=== PATIENT | female | born 1930 | race Caucasian/White ===

== ENCOUNTER → 2017-08-30 | Outpatient (CLI) | payer MEDICARE ==
[2017-08-30] MEDS: IOHEXOL 240 MG/ML 50ML VIAL. PO ×2 (11:08)
== END | disposition home or self-care (01) ==
LOC: KCIC CT 10:04
DX: K57.92 Diverticulitis of intestine, part unspecified, without perforation or abscess without bleeding (principal); M48.55XA Collapsed vertebra, not elsewhere classified, thoracolumbar region, initial encounter for fracture (principal); K57.32 Diverticulitis of large intestine without perforation or abscess without bleeding; I25.10 Atherosclerotic heart disease of native coronary artery without angina pectoris; I70.0 Atherosclerosis of aorta; I51.7 Cardiomegaly; M48.56XA Collapsed vertebra, not elsewhere classified, lumbar region, initial encounter for fracture; N20.0 Calculus of kidney; M48.04 Spinal stenosis, thoracic region; M81.0 Age-related osteoporosis without current pathological fracture; K42.9 Umbilical hernia without obstruction or gangrene; N28.89 Other specified disorders of kidney and ureter
CPT/HCPCS: 74176; Q9966